=== PATIENT | male | born 1985 | race Caucasian/White ===

== ENCOUNTER 2016-12-03 14:09 | Emergency (ER) | payer OTHER ==
[2016-12-03 15:03] VITALS: BP 106/74
== END 2016-12-03 15:03 | disposition home or self-care (01) ==
LOC: ED 14:09
DX: S05.01XA Injury of conjunctiva and corneal abrasion without foreign body, right eye, initial encounter (principal); H10.31 Unspecified acute conjunctivitis, right eye; X58.XXXA Exposure to other specified factors, initial encounter; Y93.89 Activity, other specified; Y99.8 Other external cause status; Y92.89 Other specified places as the place of occurrence of the external cause

== ENCOUNTER 2018-11-24 16:58 | Emergency (ER) | payer SELFPAY ==
[~2018-11-24] VITALS: Ht 190.5 cm; Wt 71.7 kg
[2018-11-24 17:15] VITALS: BP 111/68; Ht 190.5 cm; Wt 71.7 kg
== END 2018-11-24 20:15 | disposition left against medical advice (07) ==
LOC: ED 16:58
DX: Z53.21 Procedure and treatment not carried out due to patient leaving prior to being seen by health care provider (principal)

== ENCOUNTER 2018-11-27 03:55 | Emergency (ER) | payer SELFPAY ==
[~2018-11-27] VITALS: Ht 190.5 cm; Wt 72.2 kg
[2018-11-27 04:02] VITALS: Ht 190.5 cm; Wt 72.2 kg
[2018-11-27 08:10] VITALS: BP 122/60
== END 2018-11-27 08:10 | disposition home or self-care (01) ==
LOC: ED 03:55
DX: L02.512 Cutaneous abscess of left hand (principal)
CPT/HCPCS: 90715; J2001; J2270

== ENCOUNTER 2019-06-08 20:42 | Emergency (ER) | payer MEDICAID ==
[~2019-06-08] VITALS: Ht 190.5 cm; Wt 73.0 kg
[2019-06-08 20:47] VITALS: BP 115/78; Ht 190.5 cm; Wt 73.0 kg
[2019-06-08 21:08] LABS: BASOPHIL % 1.5 % (0-2); PLATELET COUNT 263 x10^3mcL (130-400); RED CELL DISTRIBUTION WIDTH 13.7 % (11.5-14.5)
[2019-06-08 21:11] LABS: CARBON DIOXIDE 31.7 mmol/L (21-32); CHLORIDE SERUM 103 mmol/L (98-107); CREATININE SERUM 0.9 mg/dL (0.7-1.3); GFR1 > 60 mL/min; GLUCOSE SERUM 94 mg/dL (74-106); POTASSIUM SERUM 3.9 mmol/L (3.5-5.1); SODIUM SERUM 142 mmol/L (136-145)
[2019-06-08 21:16] LABS: ALBUMIN 4.2 g/dL (3.4-5.0); ALKALINE PHOSPHATASE 73 U/L (46-116); ALT/SGPT 56 U/L (16-63); AST/SGOT 29 U/L (15-37); BILIRUBIN TOTAL 0.9 mg/dL (0.20-1.00); TOTAL PROTEIN, SERUM 8.1 g/dL (6.4-8.2)
== END 2019-06-08 22:04 | disposition left against medical advice (07) ==
LOC: ED 20:42
PROVIDERS: Emergency Medicine
DX: R07.89 Other chest pain (principal)
CPT/HCPCS: 36415